=== PATIENT | female | born 1970 | race Caucasian/White ===

== ENCOUNTER 2016-08-06 19:32 | Emergency (ER) | payer SELFPAY ==
[~2016-08-06] VITALS: Ht 154.9 cm; Wt 61.0 kg
[2016-08-06] MEDS ORDERED: KETOROLAC 30MG/ML VIAL IV STA (22:09)
[2016-08-06 22:37] LABS: BASOPHILS % 0.7 % (0.0-2.0); DIFFERENTIAL COMMENT 0; EOSINOPHILS % 1.4 % (0.0-5.0); HEMATOCRIT. 37.5 % (36.0-48.0); HEMOGLOBIN. 12.6 g/dL (12.0-16.0); LYMPHOCYTES % 53.2 % (20.0-50.0); MEAN CORPUSCULAR HEMOGLOBIN 26.7 pg (28.0-32.0); MEAN CORPUSCULAR HGB CONC 33.7 g/dL (31.0-37.0); MEAN CORPUSCULAR VOLUME 79.4 fL (81.0-99.0); MEAN PLATELET VOLUME 8.7 fl (7.4-10.4); MONOCYTES % 4.9 % (2.0-8.0); NEUTROPHILS % 39.8 % (40.0-76.0); PLATELET 274 x1000/uL (130-400); RED BLOOD CELL COUNT 4.73 mill/uL (4.2-5.4); RED CELL DISTRIBUTION WIDTH 14.1 % (11.6-14.6); WHITE BLOOD COUNT 6.1 x1000/uL (4.5-11.0)
[2016-08-06 22:41] LABS: CHLORIDE 105 mEq/L (98-107); INDEX HEMOLYSI 1 (1-3); INDEX ICTERIC 1 (1-4); INDEX LIPEMIC 1 (1-3)
[2016-08-06 22:42] LABS: PROTHROMBIN TIME 10.8 sec
[2016-08-06 22:46] LABS: ALANINE AMINOTRANSFERASE 40 IU/L (13-61); ALBUMIN 3.8 g/dL (3.4-5.0); ANION GAP 13; CALCIUM 8.8 mg/dL (8.5-10.1); CARBON DIOXIDE 27 mEq/L (21-32); LIPASE 171 IU/L (73-393); UREA NITROGEN BLOOD 8 mg/dL (7-21)
[2016-08-06 22:49] LABS: eGFR > 60 mL/min (>60)
[2016-08-06 23:06] LABS: CLARITY URINE CLEAR (CLEAR); COLOR URINE YELLOW (YELLOW); GLUCOSE URINE NEGATIVE (NEGATIVE); KETONES URINE NEGATIVE (NEGATIVE); LEUKOCYTE ESTERASE URINE NEGATIVE (NEGATIVE); NITRITE URINE NEGATIVE (NEGATIVE); OCCULT BLOOD URINE NEGATIVE (NEGATIVE); PROTEIN URINE NEGATIVE (NEGATIVE); UROBILINOGEN URINE 0.2 E.U./dL (0.2-1.0)
[2016-08-07] MEDS ORDERED: ONDANSETRON HCL 4MG TABLET PO ONE (00:15)
[2016-08-07] MEDS ORDERED: PANTOPRAZOLE 40MG DR TABLET PO ONE (00:30)
[2016-08-07 01:25] VITALS: BP 137/84
== END 2016-08-07 02:15 | disposition home or self-care (01) ==
LOC: ER 19:33
DX: K80.20 Calculus of gallbladder without cholecystitis without obstruction (principal); Z88.0 Allergy status to penicillin; Z87.442 Personal history of urinary calculi
CPT/HCPCS: 36415; 76705; 80053; 81003; 81025; 83690; 85025; 85610; 96374; 99285; J1885; Q0162

== ENCOUNTER 2018-05-13 19:29 | Emergency (ER) | payer SELFPAY ==
[~2018-05-13] VITALS: Ht 154.9 cm; Wt 62.0 kg
[2018-05-13] MEDS ORDERED: KETOROLAC 60MG/2ML VIAL IM ONE (20:15)
[2018-05-13 21:04] LABS: CLARITY URINE CLOUDY (CLEAR); COLOR URINE YELLOW (YELLOW); KETONES URINE NEGATIVE (NEGATIVE); LEUKOCYTE ESTERASE URINE NEGATIVE (NEGATIVE); NITRITE URINE NEGATIVE (NEGATIVE); OCCULT BLOOD URINE NEGATIVE (NEGATIVE); PH URINE 6.5 (4.5-8.0); PROTEIN URINE NEGATIVE (NEGATIVE); SPECIFIC GRAVITY URINE 1.031 (1.005-1.030)
[2018-05-13 22:24] VITALS: BP 113/51
== END 2018-05-13 22:29 | disposition home or self-care (01) ==
LOC: ER 19:29
DX: M54.5 Low back pain (principal); Z88.0 Allergy status to penicillin; Z90.49 Acquired absence of other specified parts of digestive tract; Z90.710 Acquired absence of both cervix and uterus
CPT/HCPCS: 81003; 81025; 96372; 99283; J1885

== ENCOUNTER 2018-09-28 18:54 | Emergency (ER) | payer SELFPAY ==
[~2018-09-28] VITALS: Ht 154.9 cm; Wt 58.0 kg
[2018-09-28] MEDS ORDERED: ONDANSETRON HCL 4MG/2ML INJ IV STA (23:04)
[2018-09-28] MEDS ORDERED: KETOROLAC 30MG/ML VIAL IV STA (23:04)
[2018-09-28 23:31] LABS: EOSINOPHILS % 1.6 % (0.0-5.0); HEMATOCRIT. 39.4 % (36.0-48.0); HEMOGLOBIN. 13.3 g/dL (12.0-16.0); LYMPHOCYTES % 50.3 % (20.0-50.0); MEAN CORPUSCULAR HEMOGLOBIN 27.9 pg (28.0-32.0); MEAN CORPUSCULAR VOLUME 82.9 fL (81.0-99.0); MEAN PLATELET VOLUME 9.4 fl (7.4-10.4); MONOCYTES % 5.4 % (2.0-8.0); NEUTROPHILS % 41.7 % (40.0-76.0); PLATELET 253 x1000/uL (130-400); RED BLOOD CELL COUNT 4.75 mill/uL (4.2-5.4)
[2018-09-28 23:36] LABS: CHLORIDE 107 mEq/L (98-107)
[2018-09-29 00:16] LABS: CLARITY URINE CLOUDY (CLEAR); COLOR URINE YELLOW (YELLOW); KETONES URINE NEGATIVE (NEGATIVE); LEUKOCYTE ESTERASE URINE NEGATIVE (NEGATIVE); NITRITE URINE NEGATIVE (NEGATIVE); OCCULT BLOOD URINE NEGATIVE (NEGATIVE); PROTEIN URINE NEGATIVE (NEGATIVE); SPECIFIC GRAVITY URINE 1.029 (1.005-1.030); UROBILINOGEN URINE 0.2 E.U./dL (0.2-1.0)
[2018-09-29] MEDS ORDERED: HYDROCODONE/ACETAMINOPHEN 5/325MG TABLET PO ONE (01:45)
[2018-09-29 05:00] VITALS: BP 123/78
== END 2018-09-29 05:15 | disposition home or self-care (01) ==
LOC: ER 18:54
DX: N23 Unspecified renal colic (principal); M54.5 Low back pain; Z90.49 Acquired absence of other specified parts of digestive tract; Z90.721 Acquired absence of ovaries, unilateral; Z88.0 Allergy status to penicillin
CPT/HCPCS: 36415; 74176; 80053; 81003; 81025; 83605; 83690; 85025; 96374; 96375; 99284; J1885; J2405; Z7610

== ENCOUNTER 2019-01-19 00:41 | Emergency (ER) | payer SELFPAY ==
[~2019-01-19] VITALS: Ht 157.5 cm; Wt 57.0 kg
[2019-01-19] MEDS ORDERED: PSEUDOEPHEDRINE HCL 30MG TABLET PO ONE (01:45)
[2019-01-19 02:20] VITALS: BP 135/79
== END 2019-01-19 02:24 | disposition home or self-care (01) ==
LOC: ER 00:41
DX: R09.81 Nasal congestion (principal); R05 Cough; R06.7 Sneezing; Z98.890 Other specified postprocedural states; Z90.710 Acquired absence of both cervix and uterus; Z88.0 Allergy status to penicillin
CPT/HCPCS: 99283

== ENCOUNTER 2021-12-18 22:25 | Emergency (ER) | payer SELFPAY ==
[~2021-12-18] VITALS: Ht 165.1 cm; Wt 62.0 kg
[2021-12-18 22:34] VITALS: BP 118/70
== END 2021-12-19 05:26 | disposition home or self-care (01) ==
LOC: ER 22:25
DX: R21 Rash and other nonspecific skin eruption (principal); Z90.710 Acquired absence of both cervix and uterus; Z88.0 Allergy status to penicillin
CPT/HCPCS: 99281

== ENCOUNTER 2023-10-18 06:17 | Emergency (ER) | payer SELFPAY ==
[~2023-10-18] VITALS: Ht 154.9 cm; Wt 53.0 kg
[2023-10-18 06:54] VITALS: TEMP 98.1; O2SAT 100
[2023-10-18] MEDS: LIDOCAINE HCL 1% 20ML VIAL INFIL ONE (09:12)
[2023-10-18] MEDS: KETOROLAC 30MG/ML VIAL IM ONE (09:12)
[2023-10-18] MEDS ORDERED: LIDO1ADH7 TP (09:33)
[2023-10-18] MEDS ORDERED: NAPR-681 MT (09:33)
[2023-10-18 09:46] VITALS: BP 133/80; PULSE 75; RESP 16
== END 2023-10-18 09:57 | disposition home or self-care (01) ==
LOC: ER 06:17
DX: M54.2 Cervicalgia (principal); M54.9 Dorsalgia, unspecified; Z98.890 Other specified postprocedural states; Z90.710 Acquired absence of both cervix and uterus; Z88.0 Allergy status to penicillin; Z88.6 Allergy status to analgesic agent; Z88.8 Allergy status to other drugs, medicaments and biological substances
CPT/HCPCS: 20552; 96372; 99284; J1885; J3490; Z7610